=== PATIENT | female | born 1985 | race African-American/Black ===

== ENCOUNTER 2019-07-03 00:15 | Emergency (ER) | payer BC ==
[~2019-07-03] VITALS: Ht 172.7 cm; Wt 57.2 kg
--- NOTE | 2019-07-03 00:25 | NUR ---
PT AAOX4. AMBULATORY WITH STEADY GAIT. BIBSELF C/O GENERALIZED CP, +PRODUCTIVE COUGH, +SOB X1WEEK. PT STATES SHE HAS BEEN ANXIOUS LATELY DUE TO SCHOOL. VSS. NO ACUTE DISTRESS NOTED. PT PLACED ON MONITOR AND PULSE OX. WILL CONTINUE TO MONITOR.
--- NOTE | 2019-07-03 00:57 | NUR ---
XRAY AT BEDSIDE
[2019-07-03] MEDS ORDERED: AZITHROMYCIN 250 MG TABLET ONE (01:19)
--- NOTE | 2019-07-03 01:24 | NUR ---
Patient discharged to home in stable condition. Written and verbal after care instructions given. Patient verbalizes understanding of instruction and RX. VSS. Pt ambulated with steady gait.
[2019-07-03 01:25] VITALS: BP 132/75
[2019-07-03] MEDS ORDERED: AZITHROMYCIN 250 MG TABLET PO ONE (01:30)
== END 2019-07-03 01:25 | disposition home or self-care (01) ==
LOC: ER 00:20
DX: J18.9 Pneumonia, unspecified organism (principal); D64.9 Anemia, unspecified; J45.909 Unspecified asthma, uncomplicated; Z88.2 Allergy status to sulfonamides; Z60.2 Problems related to living alone
CPT/HCPCS: 71045-TC